=== PATIENT | male | born 1970 | race Caucasian/White ===

== ENCOUNTER 2018-11-03 22:20 | Emergency (ER) | payer OTHER ==
[~2018-11-03] VITALS: Ht 185.4 cm; Wt 86.2 kg
[2018-11-03] MEDS ORDERED: XANAX1 MG PO (22:30)
[2018-11-03] MEDS ORDERED: ADDERALL 20 MG20 M1 PO (22:30)
[2018-11-03] MEDS ORDERED: AMOXICILLIN 50500 MG PO (22:31)
[2018-11-03] MEDS ORDERED: CLEOCIN HCL150 MG PO (22:54)
[2018-11-03 23:12] VITALS: BP 156/86
== END 2018-11-03 23:13 | disposition home or self-care (01) ==
LOC: M.ERS 22:20
DX: K08.89 Other specified disorders of teeth and supporting structures (principal); R22.0 Localized swelling, mass and lump, head

== ENCOUNTER 2020-03-28 23:52 | Emergency (ER) | payer OTHER ==
[~2020-03-28] VITALS: Ht 185.4 cm; Wt 90.7 kg
[~2020-03-28 23:52] MED LIST: ADDERALL 20 MG20 M1 PO; AMOXICILLIN 50500 MG PO; CLEOCIN HCL150 MG PO; XANAX1 MG PO
[2020-03-29] MEDS ORDERED: XANAX 1 MG TABLE1 MG PO (01:28)
[2020-03-29 01:32] VITALS: BP 118/70
== END 2020-03-29 01:33 | disposition home or self-care (01) ==
LOC: M.ERS 23:52
DX: F41.9 Anxiety disorder, unspecified (principal); Z76.0 Encounter for issue of repeat prescription; Z79.899 Other long term (current) drug therapy